=== PATIENT | male | born 1940 | race African-American/Black ===

== ENCOUNTER 2017-07-16 01:48 | Inpatient (IN) | payer OTHER ==
[~2017-07-16] VITALS: Ht 172.7 cm; Wt 121.4 kg
[~2017-07-16 01:48] MED LIST: APRESOLINE50 MG PO; COLACE100 MG PO; FEOSOL325 MG PO; KLOR-CON M2020 MEQ PO; LASIX20 MG PO; LOVENOX40 MG/0.4 SC; NIFEDICAL XL30 MG PO; TRAMADOL HCL50 MG PO; ZESTRIL20 MG PO; ZOCOR20 MG PO
[2017-07-16 05:50] LABS: BASOPHIL (%) 0.3 % (0-1); CHLORIDE 108 mEq/L (99-109); EOSINOPHIL (%) 1.2 % (0-5); EOSINOPHIL COUNT 0.1 K/uL (0-0.3); HEMATOCRIT 40.8 % (38.0-50.0); HEMOGLOBIN 13.4 G/DL (12.5-16.6); IMMATURE GRANULOCYTE (%) 0.3 % (0.0-0.7); LYMPHOCYTE (%) 18.5 % (15-42); LYMPHOCYTE COUNT 1.2 K/uL (1.0-2.8); MCH 27.7 PG (29.0-34.0); MCHC 32.8 G/DL (30.0-36.0); MCV 84.5 FL (86-99); MONOCYTE (%) 12.5 % (3-12); MONOCYTE COUNT 0.8 K/uL (0-0.8); NEUTROPHIL (%) 67.2 % (45-76); NEUTROPHIL COUNT 4.4 K/uL (1.8-6.4); PLATELET COUNT 167 K/uL (156-360); POTASSIUM 3.5 mEq/L (3.7-5.4); RBC DIS.WIDTH-SD 49.9 % (39-53); RED BLOOD COUNT 4.83 M/uL (4.00-5.50); SODIUM 143 mEq/L (136-147); WHITE BLOOD COUNT 6.6 K/uL (4.1-10.2)
[2017-07-16 05:51] LABS: GLUCOSE 111 mg/dL (70-99)
[2017-07-16 05:55] LABS: GFR ESTIMATE (CALCULATED) > 59 mL/min/ (58.99-99999)
[2017-07-16 05:56] LABS: UREA NITROGEN (BUN) 10 mg/dL (9-23)
[2017-07-16 08:04] LABS: SYNOVIAL FLUID GLUCOSE < 10 MG/DL
[2017-07-16 09:00] LABS: APPEARANCE HAZY-YELLOW; RED CELL COUNT 4000 /MM^3 (0-1); WHITE CELL COUNT 62150 /MM^3 (0-200.0)
[2017-07-16 09:09] LABS: MONONUCLEAR WBC'S 9 %; POLYNUCLEAR WBC'S 91 % (0-25); SYNOVIAL FLUID EOSINOPHILS 0 % (0-25)
[2017-07-16] MEDS ORDERED: NORCO 5/3251 TABLET PO (09:27)
[2017-07-16 12:22] LABS: MAGNESIUM 1.8 mg/dL (1.3-2.7)
[2017-07-16 12:22] LABS: C DIFF TOXIN NEGATIVE (NEGATIVE)
[2017-07-16 13:43] VITALS: BP 187/81
[2017-07-16 20:30] VITALS: BP 172/76
[2017-07-17 00:47] VITALS: BP 175/83
[2017-07-17 03:15] LABS: APPEARANCE CLEAR ((CLEAR)); BILIRUBIN NEGATIVE; BLOOD NEGATIVE; COLOR YELLOW ((YELLOW)); GLUCOSE (STRIP) NEGATIVE; KETONES NEGATIVE; LEUKOCYTES NEGATIVE; NITRITE NEGATIVE; PROTEIN (STRIP) 30; SPECIFIC GRAVITY 1.014 (1.000-1.030); UCUL ADDED? NO
[2017-07-17 03:53] VITALS: BP 184/84
[2017-07-17 05:00] VITALS: BP 150/66
[2017-07-17 06:59] LABS: HEMATOCRIT 38.7 % (38.0-50.0); HEMOGLOBIN 12.3 G/DL (12.5-16.6); MCH 26.7 PG (29.0-34.0); MCHC 31.8 G/DL (30.0-36.0); MCV 83.9 FL (86-99); PLATELET COUNT 150 K/uL (156-360); RBC DIS.WIDTH-CV 16.1 % (11.8-14.6); RBC DIS.WIDTH-SD 49.7 % (39-53); RED BLOOD COUNT 4.61 M/uL (4.00-5.50); WHITE BLOOD COUNT 4.9 K/uL (4.1-10.2)
[2017-07-17 07:22] LABS: CHLORIDE 109 MEQ/L (99-109); GFR ESTIMATE (CALCULATED) > 59 mL/min/ (58.99-99999); GLUCOSE 106 mg/dL (70-99); POTASSIUM 3.7 MEQ/L (3.7-5.4); SODIUM 141 MEQ/L (136-147); UREA NITROGEN (BUN) 12 mg/dL (9-23)
[2017-07-17 07:23] VITALS: BP 144/72
[2017-07-17] MEDS ORDERED: FERROUS SULFAT325 MG PO (10:44)
[2017-07-17] MEDS ORDERED: COLACE100 MG PO (10:50)
[2017-07-17] MEDS ORDERED: VITAMIN D32000 UNI1 PO (10:51)
[2017-07-17 11:08] VITALS: BP 142/64
[2017-07-17] MEDS ORDERED: NAPROXEN500 MG PO (11:40)
[2017-07-17] MEDS ORDERED: ALLOPURINOL100 MG PO (11:42)
[2017-07-17] MEDS ORDERED: Colchicine,Colcrys PO (11:42)
[2017-07-17] MEDS ORDERED: VENTOLIN HFA18 GM IH (11:44)
[2017-07-17] MEDS ORDERED: SPIRIVA18 MCG IH (11:45)
== END 2017-07-17 15:28 | disposition home or self-care (01) | DRG 554 ==
LOC: EME 01:48 → 3EAST 11:13 → EDOF 11:13 → ENRESERV 11:22 → 3EAST 13:19
PROVIDERS: Emergency Medicine Emergency Medical Services; Physician Assistant
PROC: 0R9M3ZX Drainage of Left Elbow Joint, Percutaneous Approach, Diagnostic (ICD-10-PCS; principal; 2017-07-16)
DX: M10.9 Gout, unspecified (principal); R26.2 Difficulty in walking, not elsewhere classified; I11.0 Hypertensive heart disease with heart failure; I50.9 Heart failure, unspecified; E78.5 Hyperlipidemia, unspecified; J44.9 Chronic obstructive pulmonary disease, unspecified; E87.6 Hypokalemia; Z86.73 Personal history of transient ischemic attack (TIA), and cerebral infarction without residual deficits; Z72.0 Tobacco use; Z82.49 Family history of ischemic heart disease and other diseases of the circulatory system
CPT/HCPCS: 71046; 73080; 80048; 81003; 82945 91; 83605; 83735; 84157; 85025; 85027; 87040; 87205; 87493; 89051; 89060; 93005; 93971; 99202; 99281; 99285; J0360; J0692; J1644; J3370; J7040